=== PATIENT | male | born 1960 | race Caucasian/White ===

== ENCOUNTER 2020-01-10 21:29 | Emergency (ER) | payer SELFPAY ==
[2020-01-10 21:43] VITALS: TEMP 97.6; O2SAT 95
[2020-01-10] MEDS ORDERED: HYDROcodone 10MG/APAP 325MG 1 EA TAB PO ONE (21:45)
[2020-01-10] MEDS ORDERED: TETANUS,DIPHTHERIA,PERTUSSIS 1 EA SYG IM ONE (21:45)
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
[2020-01-10] MEDS ORDERED: SILVER SULFADIAZINE 1 % 25 GM TUBE TOP ONE (21:46)
[2020-01-10 22:02] VITALS: BP 143/89
== END 2020-01-10 21:59 | disposition home or self-care (01) ==
LOC: ER 21:29
DX: T23.242A Burn of second degree of multiple left fingers (nail), including thumb, initial encounter (principal); I10 Essential (primary) hypertension; T31.0 Burns involving less than 10% of body surface; X10.2XXA Contact with fats and cooking oils, initial encounter; Y92.9 Unspecified place or not applicable